=== PATIENT | female | born 1950 | race Caucasian/White ===

== ENCOUNTER 2017-11-25 03:39 | Emergency (ER) | payer MEDICARE, MEDICAID ==
[~2017-11-25] VITALS: Ht 162.6 cm; Wt 72.0 kg
[~2017-11-25 03:39] MED LIST: DIPH25CA85 PO; VICOT PO
[2017-11-25] MEDS ORDERED: PERTUSS(ACELL),DIPH,TET VAC/PF 0.5 ML VIAL IM ONE (06:30)
[2017-11-25] MEDS ORDERED: ACETAMINOPHEN/CODEINE 300-15 MG TABLET PO ONE (06:30)
[2017-11-25] MEDS ORDERED: AMOX TR/POT CLAV 875 MG/125 MG TABLET PO ONE (06:45)
[2017-11-25] MEDS ORDERED: ACETAMINOPHEN/CODEINE 300-30 MG TABLET PO ONE (06:45)
[2017-11-25 07:37] VITALS: BP 135/77
== END 2017-11-25 07:39 | disposition home or self-care (01) ==
LOC: EMS 03:39
DX: S51.831A Puncture wound without foreign body of right forearm, initial encounter (principal); S61.512A Laceration without foreign body of left wrist, initial encounter; F41.9 Anxiety disorder, unspecified; K21.9 Gastro-esophageal reflux disease without esophagitis; W54.0XXA Bitten by dog, initial encounter; Y93.89 Activity, other specified; Y92.89 Other specified places as the place of occurrence of the external cause; Y99.8 Other external cause status
CPT/HCPCS: 90471; 90715; 99284

== ENCOUNTER 2017-12-09 04:30 | Emergency (ER) | payer MEDICARE, MEDICAID ==
[~2017-12-09] VITALS: Ht 162.6 cm; Wt 72.7 kg
[2017-12-09] MEDS ORDERED: AMOX TR/POT CLAV 875 MG/125 MG TABLET PO ONE (06:15)
[2017-12-09] MEDS ORDERED: LIDOCAINE 1% 10 ML VIAL INJ ONE (06:15)
[2017-12-09 06:36] VITALS: BP 135/95
== END 2017-12-09 06:50 | disposition home or self-care (01) ==
LOC: EMS 04:30
DX: S61.412A Laceration without foreign body of left hand, initial encounter (principal); F41.9 Anxiety disorder, unspecified; J40 Bronchitis, not specified as acute or chronic; K21.9 Gastro-esophageal reflux disease without esophagitis; W54.0XXA Bitten by dog, initial encounter; Y93.89 Activity, other specified; Y92.89 Other specified places as the place of occurrence of the external cause; Y99.8 Other external cause status
CPT/HCPCS: 12001; 73130; 99284; J3490